=== PATIENT | female | born 1965 | race Caucasian/White ===

== ENCOUNTER 2018-03-02 05:22 | Day surgery (SDC) | payer OTHER ==
[2018-02-28 12:28] LABS: HEMATOCRIT 39.4 % (36.0-47.0); HEMOGLOBIN 13.7 g/dL (12.0-15.5); MEAN CORPUSCULAR HGB CONC 34.8 g/dL (32.0-36.0); MEAN CORPUSCULAR VOLUME 92 fl (80-97); PLATELET COUNT 245 10^3/uL (150-450); RED BLOOD COUNT 4.28 10^6/uL (3.72-5.28); RED CELL DISTRIBUTION WIDTH 12.7 % (11.5-14.0)
[2018-02-28 12:46] LABS: APPEARANCE,URINE CLEAR; BILIRUBIN,URINE NEGATIVE (NEGATIVE); COLOR,URINE STRAW; GLUCOSE, URINE NEGATIVE (NEGATIVE); KETONES,URINE NEGATIVE (NEGATIVE); LEUKOCYTE ESTERASE,URINE NEGATIVE (NEGATIVE); NITRITE,URINE NEGATIVE (NEGATIVE); PROTEIN,URINE NEGATIVE (NEGATIVE); URINE SPECIFIC GRAVITY 1.002; UROBILINOGEN,URINE NEGATIVE mg/dL (<2.0)
[2018-02-28 12:56] LABS: ANION GAP 12 (5-19); BLOOD UREA NITROGEN 14 mg/dL (7-20); CALCIUM 9.5 mg/dL (8.4-10.2); CARBON DIOXIDE 28 mmol/L (22-30); CHLORIDE 103 mmol/L (98-107); GLUCOSE 97 mg/dL (75-110); SODIUM 142.5 mmol/L (137-145)
[~2018-03-02 05:22] MED LIST: CEFAZOLIN 1 GM/D5W RTU 1 GM/50 ML RTUPB IV PRN; LACTATED RINGERS 1000 ML IV PRN; LIDOCAINE 0.5% INJ-PF (5 MG/ML) 50 ML SDV SUBCUT PRN
[2018-03-02] MEDS ORDERED: LIDOCAINE 2% INJ-PF (20 MG/ML) 10 ML AMPUL ONE (06:50)
[2018-03-02] MEDS ORDERED: PROPOFOL INJ 200 MG/20 ML VIAL IV ONE (06:50)
[2018-03-02] MEDS ORDERED: ONDANSETRON HCL INJ/PF 4 MG/2 ML SDV ONE (06:51)
[2018-03-02] MEDS ORDERED: ACETAMINOPHEN 1,000 MG/100 ML RTUPB IV ONE (06:51)
[2018-03-02] MEDS ORDERED: KETOROLAC TROMETHAMINE 60 MG/2 ML SDV ONE (06:51)
[2018-03-02] MEDS ORDERED: MIDAZOLAM 2 MG/2 ML INJ ONE (06:51)
[2018-03-02] MEDS ORDERED: FENTANYL CITRATE INJ/PF 100 MCG/2 ML AMPUL ONE ×2 (06:52)
[2018-03-02] MEDS ORDERED: LIDOCAINE 1% INJ-PF (10 MG/ML) 30 ML SDV ONE (07:25)
[2018-03-02] MEDS ORDERED: DIPHENHYDRAMINE HCL 50 MG/ML VIAL IV PRN (07:30)
[2018-03-02] MEDS ORDERED: MEPERIDINE HCL/PF INJ 25 MG/1 ML DISP.SYRIN IV PRN (07:30)
[2018-03-02] MEDS ORDERED: MORPHINE SULFATE 10 MG/ML INJ IV PRN (07:30)
[2018-03-02] MEDS ORDERED: PROMETHAZINE HCL INJ 25 MG/1 ML VIAL IV PRN ×2 (07:30)
[2018-03-02] MEDS ORDERED: FENTANYL CITRATE INJ/PF 100 MCG/2 ML AMPUL IV PRN ×3 (07:30)
[2018-03-02] MEDS ORDERED: ONDANSETRON HCL INJ/PF 4 MG/2 ML SDV IV PRN (07:30)
[2018-03-02] MEDS ORDERED: OXYCODONE-ACETAMINOPHEN 5-325 MG TABLET PO PRN ×3 (07:30→08:03)
[2018-03-02] MEDS ORDERED: MORPHINE SULFATE 10 MG/ML INJ INJ PRN (08:03)
[2018-03-02] MEDS ORDERED: PROMETHAZINE HCL INJ 25 MG/1 ML VIAL IM PRN (08:04)
--- NOTE | 2018-03-02 08:40 | OPERATIVE REPORT E ---
Operative Report NAME: ROBIN ERNST : 1965 AGE: 52Y DATE OF SURGERY: 03/02/2018 ROOM: PREOPERATIVE DIAGNOSIS: Postmenopausal bleeding. POSTOPERATIVE DIAGNOSIS: Postmenopausal bleeding. OPERATION: Hysteroscopy, dilatation and curettage. SURGEON: KAVYA PINK M.D. ANESTHESIA: LMAC. COMPLICATIONS: None. FINDINGS: Normal atrophic endometrial cavity. No polyps or fibroids were encountered and uterus sounded to approximately 7 cm. Endometrial biopsies and endocervical biopsies were obtained. INDICATIONS FOR PROCEDURE: The patient had postmenopausal bleeding. A stenotic cervix precluded any type of outpatient assessment. She was brought to the hospital for further evaluation. The usual risks of bleeding, infection, anesthesia, damage to other organs or tissues was discussed with the patient who understood. PROCEDURE: The patient was taken to the operating room and placed in modified lithotomy position after adequate anesthesia was ascertained, prepped and draped in the usual manner for a hysteroscopy. Approximately 8 mL of 1% plain lidocaine was used to infiltrate the cervix, and the cervix was slowly methodically dilated to admit an operative hysteroscope. Atrophic endometrial cavity was appreciated and no polyps or fibroids were appreciated. A scant amount of tissue was obtained from the endometrial cavity and endocervix as well. These were sent as separate specimens. Hysteroscopy demonstrated a good thorough biopsy of the area of concern. Good hemostasis was noted at the completion of the procedure. All sponge and needle counts were correct. Patient was taken to recovery in stable condition. DICTATING PHYSICIAN: KAVYA PINK M.D. [id number] PHY#: [id number] ID: [id number] JOB#: [id number] ACCT: [id number] cc:KAVYA PINK M.D. >
[2018-03-02 09:35] VITALS: BP 100/69
[2018-03-02] MEDS ORDERED: IBUPROFEN 800 MG TABLET PO SCH (10:00)
== END 2018-03-02 09:30 | disposition home or self-care (01) ==
LOC: OROUT 05:22
PROVIDERS: ATTEND Specialist
DX: N95.0 Postmenopausal bleeding (principal); N88.2 Stricture and stenosis of cervix uteri; Z79.899 Other long term (current) drug therapy; Z88.8 Allergy status to other drugs, medicaments and biological substances; Z87.891 Personal history of nicotine dependence
CPT/HCPCS: 86900; 86901; 36415; 86850; 85027; 81025; 80048; 81001; 88305 ×2; 58558; J2250; J0690; J1885; J3010; J3490 ×2; J2405; J2704; J0131; 952